=== PATIENT | female | born 1945 | race Caucasian/White ===

== ENCOUNTER → 2024-07-15 12:49 | Outpatient (REF) | payer MEDICARE, BC, SELFPAY | LOC: HWWDC 12:49 | PROVIDERS: ATTENDING PHYSICIAN Obstetrics & Gynecology; FAMILY PHYSICIAN Internal Medicine | DX: Z12.31 Encounter for screening mammogram for malignant neoplasm of breast (principal); M81.0 Age-related osteoporosis without current pathological fracture | CPT/HCPCS: 77063; 77067; 77080 ==

== ENCOUNTER → 2025-01-27 12:36 | Outpatient (REF) | payer MEDICARE, BC, SELFPAY ==
[2025-01-27 13:44] LABS: Hematocrit 39.9 % (37.0-47.0); Hemoglobin 13.7 g/dL (12.0-16.0); Mean Corp Hgb Conc. 34.3 g/dL (33.0-37.0); Mean Corpuscular Volume 85.6 fL (81.0-99.0); Nucleated Red Blood Cells % 0 %; Platelet Count 181 10^3/uL (130-400); Red Cell Dist. Width 13.1 % (11.5-14.5)
[2025-01-27 14:16] LABS: ALT (SGPT) 33 U/L (0-35); AST (SGOT) 37 U/L (14-36); Albumin 4.7 g/dl (3.5-5.0); Alkaline Phosphatase 115 U/L (38-126); Blood Urea Nitrogen 14 mg/dl (7-17); Calcium 9.8 mg/dl (8.4-10.2); Carbon Dioxide 27 mmol/L (22-30); Chloride 99 mmol/L (98-107); Glucose 111 mg/dl (70-99); HDL Cholesterol 44 mg/dl; LDL Cholesterol, Calculated 117 mg/dl; Potassium 3.5 mmol/L (3.5-5.1); Sodium 134 mmol/L (135-145); Total Protein 7.6 g/dl (6.3-8.2); Very Low Density Lipoprotein 43 mg/dl (0-30); eGFR > 60.00
== END ==
LOC: REG 12:36
PROVIDERS: ATTENDING PHYSICIAN Nurse Practitioner Family
DX: I10 Essential (primary) hypertension (principal); E78.3 Hyperchylomicronemia
CPT/HCPCS: 36415; 80053; 80061; 84439; 84443; 85025

== ENCOUNTER 2025-03-28 13:39 | Emergency (ER) | payer MEDICARE, BC, SELFPAY ==
[2025-03-28 14:20] LABS: Hematocrit 39.6 % (37.0-47.0); Hemoglobin 13.7 g/dL (12.0-16.0); Mean Corp Hgb Conc. 34.6 g/dL (33.0-37.0); Mean Corpuscular Volume 86.7 fL (81.0-99.0); Nucleated Red Blood Cells % 0 %; Platelet Count 178 10^3/uL (130-400); Red Cell Dist. Width 13.5 % (11.5-14.5)
[2025-03-28 14:45] LABS: Troponin I < 0.012 ng/ml
[2025-03-28 14:52] LABS: ALT (SGPT) 28 U/L (0-35); AST (SGOT) 35 U/L (14-36); Albumin 4.6 g/dl (3.5-5.0); Alkaline Phosphatase 101 U/L (38-126); Blood Urea Nitrogen 12 mg/dl (7-17); Calcium 9.7 mg/dl (8.4-10.2); Carbon Dioxide 28 mmol/L (22-30); Chloride 97 mmol/L (98-107); Glucose 116 mg/dl (70-99); Potassium 3.7 mmol/L (3.5-5.1); Sodium 132 mmol/L (135-145); Total Protein 8.3 g/dl (6.3-8.2); eGFR > 60.00
[2025-03-28 17:46] VITALS: BP 126/70
--- NOTE | 2025-03-28 17:54 | ED.GENMED ---
History of Present Illness
<Jaelyn Fox DO - Last Filed: 03/28/25 17:55>
General
Chief Complaint: Chest Pain
Time Seen by Provider: 03/28/25 17:44
<Kyung Eckert PA-C - Last Filed: 03/29/25 10:31>
General
Source: patient
Exam Limitations: none
Nursing documentation reviewed up to this point in time: agreed with
History of Present Illness
History of Present Illness:
Patient is an 80-year-old female with history hyperlipidemia who presents to the emergency department after episode of chest discomfort earlier today. Patient states she was sitting at the kitchen table after taking her supplements and eating an
apple when she had a pain in her mid chest. She is unable to describe it anymore specifically then 'pain'. Not described as pressure or tightness. This pain radiated up into her jaw. She briefly had a difficulty swallowing. Chest pain lasted
for about 20 minutes and then started to resolve. By arrival to the emergency department her symptoms had resolved completely.
She denies any radiation of pain into her back. No associated shortness of breath. No lightheadedness, dizziness, or diaphoresis.
She states she is relatively active and does not experience any recent fatigue, exertional dyspnea, or chest discomfort with walking or activities.
No recent travel or surgeries. No exogenous hormone use. No pain or swelling in lower extremities.
Patient has no known history of coronary artery disease. No significant family history.
Past History
<Jaelyn Fox DO - Last Filed: 03/28/25 17:55>
Past History
ED Past Medical History: HTN and Other (M�ni�re's disease)
ED Past Surgical History: Orthopedic (Bilateral knee replacements)
Social History
Tobacco: Non-smoker
Alcohol: None
Drug: None
Personal:
Living: with family
Employment: Retired
Review of Systems
<Kyung Eckert PA-C - Last Filed: 03/29/25 10:31>
Review of Systems
Allergies reviewed?: Yes
All Other Systems: ROS reviewed and negative except as documented in HPI and ROS
Phy Exam
<Kyung Eckert PA-C - Last Filed: 03/29/25 10:31>
Physical Exam
Physical Exam:
Vitals: Patient's vital signs are stable. Afebrile
General: Patient is very well appearing, no acute distress
Skin: Warm and dry, no rashes or lesions
Head: Normocephalic, atraumatic
Eyes: No periorbital edema. Sclera nonicteric.
Throat: No swelling of lips or tongue. No tongue deviation. Uvula midline. Protecting airway
Neck: Normal ROM, no cervical spine tenderness, no meningismus
Cardiac: Regular rate and rhythm, no murmurs. 2+ palpable radial pulses bilaterally. No reproducible chest wall tenderness.
Pulm: Normal respiratory effort. Lungs clear bilaterally
Abdomen: Abdomen soft and nontender.
Extremities: No evidence of cyanosis or edema
Neuro: AAOx3. Grossly intact.
Psychiatric: Normal affect.
Scores
<Kyung Eckert PA-C - Last Filed: 03/29/25 10:31>
Heart Score for Chest Pain Patients
STEMI patient?: Not applicable
Course
<Jaelyn Fox DO - Last Filed: 03/28/25 17:55>
Orders/Labs/Results
Orders:
Orders
03/28/25 13:40
EKG [Electrocardiogram (*1)] Urgent
Reason for Study: Chest Pain
EKG- Treatment ONCE
03/28/25 14:02
Complete Blood Count/With Diff Urgent
Comprehensive Metabolic Panel Urgent
Troponin I Urgent
03/28/25 17:55
Electrocardiogram (*1) Urgent
Reason for Study: Chest Pain
EKG- Treatment ONCE
CR Chest - 2 Views Urgent
Comment:
Reason For Exam: chest pain
03/28/25 18:21
Troponin I Urgent
Abnormal Lab Results
03/28/25
14:02
MPV 10.9 H fL
(7.4-10.4)
Absolute Monos (auto) 0.8 H 10^3/uL
(0.1-0.6)
Monocytes % 12.2 H %
(1.7-9.3)
Sodium 132 L mmol/L
(135-145)
Chloride 97 L mmol/L
(98-107)
Glucose 116 H mg/dl
(70-99)
Total Protein 8.3 H g/dl
(6.3-8.2)
03/28/25 14:02
03/28/25 14:02
Vital Signs
Initial and Last Documented VS:
Initial Vital Signs
Temp Pulse Resp Pulse Ox
97.6 F 85 18 96
03/28/25 13:50 03/28/25 13:50 03/28/25 13:50 03/28/25 13:50
Last Documented Vital Signs
Temp Pulse Resp BP Pulse Ox
98.6 F 85 15 132/72 99
03/28/25 18:29 03/28/25 19:15 03/28/25 19:15 03/28/25 19:05 03/28/25 19:15
<Kyung Eckert PA-C - Last Filed: 03/29/25 10:31>
Orders/Labs/Results
Orders:
Orders
03/28/25 13:40
EKG [Electrocardiogram (*1)] Urgent
Reason for Study: Chest Pain
EKG- Treatment ONCE
03/28/25 14:02
Complete Blood Count/With Diff Urgent
Comprehensive Metabolic Panel Urgent
Troponin I Urgent
03/28/25 17:55
Electrocardiogram (*1) Urgent
Reason for Study: Chest Pain
EKG- Treatment ONCE
CR Chest - 2 Views Urgent
Comment:
Reason For Exam: chest pain
03/28/25 18:21
Troponin I Urgent
Abnormal Lab Results
03/28/25
14:02
MPV 10.9 H fL
(7.4-10.4)
Absolute Monos (auto) 0.8 H 10^3/uL
(0.1-0.6)
Monocytes % 12.2 H %
(1.7-9.3)
Sodium 132 L mmol/L
(135-145)
Chloride 97 L mmol/L
(98-107)
Glucose 116 H mg/dl
(70-99)
Total Protein 8.3 H g/dl
(6.3-8.2)
03/28/25 14:02
03/28/25 14:02
Vital Signs
Initial and Last Documented VS:
Initial Vital Signs
Temp Pulse Resp Pulse Ox
97.6 F 85 18 96
03/28/25 13:50 03/28/25 13:50 03/28/25 13:50 03/28/25 13:50
Last Documented Vital Signs
Temp Pulse Resp BP Pulse Ox
98.6 F 85 15 132/72 99
03/28/25 18:29 03/28/25 19:15 03/28/25 19:15 03/28/25 19:05 03/28/25 19:15
<Kyung Eckert PA-C - Last Filed: 03/29/25 10:31>
MDM/Problems Addressed
Differential Diagnosis Includes:
Not limited to: Esophageal spasm, globus sensation, muscular strain/spasm, doubt acute coronary syndrome, etc.
MDM/Problems Addressed:
80-year-old female with episode of atypical chest pain earlier today. Lasted approximately 30 minutes and has since been asymptomatic for a few hours. No clear exertional or pleuritic component. Vitals stable. On exam, patient well appearing and in
no distress. Cardio/pulmonary assessment unremarkable. Abdomen soft and nontender.
Initial EKG without evidence of acute ischemic changes.
Prior to my evaluation, basic labs were sent which were unremarkable as well as a negative troponin.
Chest pain seems atypical. Does not seem to be consistent with angina. Do not suspect infectious process. Will trend troponin and obtain chest x-ray to rule out acute cardiac emergency.
Repeat troponin undetectable. CXR without acute abnormalities. Patient has remained asymptomatic and very well appearing in ED.
Do not suspect acute cardiac emergency. Possibly esophageal spasm after taking supplements/eating.
Feel stable for discharge home with outpatient follow-up and strict return precautions. Placed patient on chest pain hotline for outpatient cards eval.
Chronic conditions affecting care:
N/A
Acute Exacerbation and/or Progression of Chronic Illness:
N/A
<Jaelyn Fox DO - Last Filed: 03/28/25 17:55>
*Pulse Oximetry
SaO2: 96
*EKG
Interpreted by ED Provider?: Yes (I independently viewed and interpreted twelve-lead EKG showing sinus rhythm with PACs, rate 83, normal axis, otherwise normal intervals, inferior Q waves noted without ST elevation, this is an abnormal tracing
without significant change compared to prior from 12/19/2020)
*Chain [employer] L[employer] Control Interpretation
Rate: normal (I independently viewed and interpreted rhythm strip showing normal sinus rhythm, no ectopy)
<Kyung Eckert PA-C - Last Filed: 03/29/25 10:31>
*Radiology
Radiology exam reviewed: preliminary read by ED provider (Chest x-ray reviewed by me-no acute findings)
*Pulse Oximetry
Patient hypoxic: no
*EKG
EKG Intrepretation Date: 03/28/25
Interpretation: abnormal
Comparison EKG: no changes
Heart Rate: 85
Rate: normal
Rhythm: sinus
[place]: normal axis
Interval: first degree heart block
QRS Pattern: normal QRS
Ischemia: non-specific ST changes
*Chain Maker Loom Control Interpretation
Interpretation: normal
Heart Rate: 85
Rhythm: sinus
*Critical Care Note
Total Time (30-74mins, 75-104mins- exclusive of procedures): Not Applicable
ED Attending Note
<Jaelyn Fox, DO - Last Filed: 03/28/25 17:55>
-
Portions of this chart may have been created with voice recognition software.� Occasional wrong word or��sound alike� substitutions may have occurred due to the inherent limitations of voice recognition software.
Discharge Plan
Departure
Patient Disposition: Home (Routine Discharge)
Date of Disposition: 03/28/25
Time of Disposition: 19:11
Patient with high blood pressure during this ER visit?: Yes
Condition: Good
Discharge Problem:
Chest pain
Instructions: Chest pain (DC), Chest Pain CBC Follow Up
Prescriptions:
No Action
dorzolamide-timolol 1 DROP drops
1 drp BOTH EYES DAILY
Patient Comments:
generic drug
meclizine 25 MG tablet
25 mg PO Q8H PRN (Reason: dizziness or nausea) Qty: 15 0RF
sulfamethoxazole-trimethoprim 1 TABLET tablet
1 tab PO BID
Patient Comments:
04/08/17: Prescribed 04/07/17 for 7 days
brinzolamide-brimonidine [Simbrinza] 8 ML drops,suspension
1 drp BOTH EYES TID
milk thistle 175 MG tablet
175 mg PO BID
cyanocobalamin (vitamin B-12) 1,000 MCG tablet
1,000 mcg PO BID
triamterene-hydrochlorothiazid 1 CAPSULE capsule
1 cap PO DAILY@1400
ascorbic acid (vitamin C) [Vitamin C] 500 MG tablet
500 mg PO DAILY
vitamin B complex 1 TAB tablet
1 tab PO DAILY
oszerad-adnjwiscw-rugg 1 EACH tablet
1 tab PO DAILY
fish oil-dha-epa 1 EACH capsule
1 cap PO BID
glucosamine kent 2KCl-chondroit [Glucosamine Sulf-Chondroitin] 1 EACH capsule
1 cap PO BID
cholecalciferol (vitamin D3) 2,000 UNITS tablet
2,000 unit PO DAILY
bimatoprost [Lumigan] 1 DROP drops
1 drp BOTH EYES HS
lutein 20 MG tablet
20 mg PO DAILY
multivitamin with folic acid [Tab-A-Jennifer] 1 TABLET tablet
1 tab PO DAILY
acetaminophen 325 MG tablet
650 mg PO Q4HPRN PRN (Reason: mild pain/temp) 0RF
docusate sodium 100 MG capsule
100 mg PO BID 0RF
phenazopyridine 100 MG tablet
100 mg PO TIDPRN PRN (Reason: burning with urination) 0RF
diazepam 5 MG tablet
5 mg PO TIDPRN PRN (Reason: vertigo) Qty: 9 0RF
ondansetron 4 MG tablet,disintegrating
4 mg PO TIDPRN PRN (Reason: nausea/vomiting) Qty: 9 0RF
meclizine 25 MG tablet
25 mg PO Q8H Qty: 30 0RF
diazepam 5 MG tablet
5 mg PO TIDPRN PRN (Reason: vertigo) Qty: 9 0RF
ondansetron 4 MG tablet,disintegrating
4 mg PO TIDPRN PRN (Reason: nausea/vomiting) Qty: 12 0RF
diazepam [Valium] 5 MG tablet
5 mg PO Q8H PRN (Reason: Vertigo) Qty: 9 0RF
Referrals:
Leida Sherwood CRNP [Family Provider, Internal Medicine]
Trell Long MD [Active, Cardiology] - Follow up in 1 week
Activity Restrictions/Additional Instructions:
RETURN TO THE EMERGENCY DEPARTMENT WITH ANY CHEST PAIN, SHORTNESS OF BREATH/DIFFICULTY BREATHING, SEVERE BACK PAIN, LIGHTHEADEDNESS OR DIZZINESS, WORSENING IN CURRENT SYMPTOMS, OR ANY OTHER CONCERNS
- Your workup in the emergency department including labs, cardiac enzymes, and chest x-ray showed no acute findings.
- Please continue to stay well-hydrated.
- Follow-up with cardiology for further evaluation/management to ensure your symptoms are improving. Contact information has been provided for you above
Monitor your symptoms closely and return to the emergency department with any acute worsening/new symptoms or any other concerns
Interventions
Interventions:
*Risk Screen - Suicide Last Done: 03/28/25 13:54
*General Assessment Last Done: 03/28/25 18:29
*Neglect/Abuse Screening Last Done: 03/28/25 13:54
*ED- Fall Risk Assessment Last Done: 03/28/25 18:29
*ED COVID-19 Vaccine History Last Done: 03/28/25 18:29
*ED Influenza Vaccine History Last Done: 03/28/25 18:29
*Nursing Disposition Last Done: 03/28/25 19:33
ED- Cardiac Assessment Last Done: 03/28/25 18:29
Discharge Date and Time
Discharge Date/Time: 03/28/25 19:38
Print Language: GERMAN
[2025-03-28 18:00] VITALS: BP 115/64
[2025-03-28 18:21] VITALS: BMI 33.3
[2025-03-28 18:29] VITALS: BP 115/64
[2025-03-28 18:52] LABS: Troponin I < 0.012 ng/ml
[2025-03-28 19:05] VITALS: BP 132/72
== END 2025-03-28 19:38 | disposition home or self-care (01) ==
LOC: EMR 13:39
PROVIDERS: Emergency Medicine; Physician Assistant; EMERGENCY PHYSICIAN Emergency Medicine; FAMILY PHYSICIAN Nurse Practitioner Family
DX: R07.9 Chest pain, unspecified (principal); I44.0 Atrioventricular block, first degree; I49.1 Atrial premature depolarization; I10 Essential (primary) hypertension; E78.5 Hyperlipidemia, unspecified; Z96.653 Presence of artificial knee joint, bilateral
CPT/HCPCS: 99284; 71046; 80053; 84484; 85025; 93005